=== PATIENT | male | born 1995 | race Caucasian/White ===

== ENCOUNTER 2017-01-31 03:33 | Emergency (ER) | payer MEDICAID ==
[~2017-01-31] VITALS: Ht 180.3 cm; Wt 63.8 kg
[2017-01-31 03:42] VITALS: BP 131/86; PULSE 54; RESP 20; TEMP 97.6; O2SAT 100
[2017-01-31] MEDS ORDERED: IBUP-232 PO (03:50)
[2017-01-31] MEDS ORDERED: NEOMYCIN/POLYMYXIN/HYDROCORT OTIC SOLN 10 ML BTL RIGHT EAR ONE (04:00)
[2017-01-31] MEDS ORDERED: AMOXICILLIN/CLAVULANATE K 875 MG TAB PO ONE (04:00)
[2017-01-31] MEDS ORDERED: CORT1SOL RIGHT EAR (04:00)
[2017-01-31] MEDS ORDERED: AUGM875T PO (04:00)
--- NOTE | 2017-01-31 04:00 | PD ---
HPI Chief Complaint: ENT Complaint Time Seen by Provider: 03:43 Travel History International Travel<30 days: No Contact w/Intl Traveler<30days: No Traveled to known affect area: No History of Present Illness HPI The patient is a 21-year-old male that complains of right ear pain for the last 24 hours. The patient states that he was in the shower last night and thought he may have hurt it in the shower or he had some water that he could not get rid of the knee year. He denies any fever. He denies any cough or sore throat. He denies any nausea, vomiting or diarrhea. He denies any airline flights or scuba diving recently. The patient is not allergic to penicillin, the mother put this on the record because the mother is allergic to penicillin. [facility] Past Medical History ADD: Yes Diminished Hearing: No Tetanus Vaccination: > 5 Years Influenza Vaccination: No Past Surgical History Surgical History: No Previous Surgery Social History Alcohol Use: No Tobacco Use: No Substance Use: No Allergies-Medications (Allergen,Severity, Reaction): Coded Allergies: Penicillin (Verified Allergy, Intermediate, DENIES PER PT, 01/31/17) Reported Meds & Prescriptions Reported Meds & Active Scripts Active Reported Ibuprofen 600 Mg Tab 600 Mg PO Q6H PRN Review of Systems Except as stated in HPI: all other systems reviewed are Neg Physical Exam Narrative GENERAL: Well-nourished, well-developed patient in moderate apparent distress with his right ear discomfort. His vital signs show pulse of 54 but otherwise normal. SKIN: Focused skin assessment warm/dry. HEAD: Normocephalic. EYES: No scleral icterus. The right eye shows conjunctival injection with clear drainage. The left eye shows no injection and is normal. NECK: Supple, trachea midline. No JVD or lymphadenopathy. CARDIOVASCULAR: Regular rate and rhythm without murmurs, gallops, or rubs. RESPIRATORY: Breath sounds equal bilaterally. No accessory muscle use. GASTROINTESTINAL: Abdomen soft, non-tender, nondistended. MUSCULOSKELETAL: No cyanosis, or edema. BACK: Nontender without obvious deformity. No CVA tenderness. ENT: The left tympanic membrane and canal are normal. The right canal is tender to the touch and red. The tympanic membrane on the right is distorted and pus is seen behind the drum. The throat is without erythema, exudate or abscess. Data Data Last Documented VS Vital Signs Date Time Temp Pulse Resp B/P Pulse Ox O2 Delivery O2 Flow Rate FiO2 01/31/17 03:45 20 01/31/17 03:42 97.6 54 131/86 100 Orders Amoxicil-Clavulanate (Augmentin) (01/31/17 04:00) MDM Medical Decision Making Medical Screen Exam Complete: Yes Emergency Medical Condition: Yes Medical Record Reviewed: Yes Differential Diagnosis Otitis media, otitis externa, TMJ pain, dental pain, viral syndrome Narrative Course The patient will be given prescriptions for Cortisporin otic drops and Augmentin. Diagnosis Primary Impression: Right otitis media with effusion Additional Impression: Right otitis externa Additional Instructions: 4 drops in the right ear 4 times daily with the eardrops. The Augmentin is one tablet twice daily for 10 days. Med/Other Pt SpecificInfo: Prescription(s) given Scripts [id number]-EV Otic Drops (Cortisporin HC Otic Drops)3.5-10,000-1 Mg- Units-% Soln5 Drop RIGHT EAR QID #1 BOTTLE Ref 1 Prov:Ac Meraz MD 01/31/17 Amoxicillin-Clavulanate (Augmentin)875-125 mg [id number] Mg PO BID 10 Days Ref 0 not for use in CrCl <30 ml/min. Prov:Ac Meraz MD 01/31/17 Disposition: 01 DISCHARGE HOME Condition: Stable Ac Meraz MD January 31, 2017 04:00
[2017-01-31] MEDS ORDERED: PERC5TAB12 PO (04:05)
[2017-01-31] MEDS ORDERED: oxyCODONE/ACETAMINOPHEN 7.5 MG/325 MG TAB PO ONE (04:15)
[2017-01-31 05:05] VITALS: BP 122/74
== END 2017-01-31 05:08 | disposition home or self-care (01) ==
LOC: PHED 03:33
DX: H65.91 Unspecified nonsuppurative otitis media, right ear (principal); H60.91 Unspecified otitis externa, right ear
CPT/HCPCS: 99282